=== PATIENT | female | born 1955 | race Hispanic/Latino ===

== ENCOUNTER 2020-09-02 19:03 | Emergency (ER) | payer OTHER, BC ==
[2020-09-02 20:04] LABS: Protime INR 1.23
[2020-09-02 20:05] LABS: Absolute Lymphocytes (CBC) 3.4 K/uL (0.7-4.9); Basophils % 1.1 % (0-1.3); Hematocrit 38.1 % (36.0-45.0); Lymphocytes % 35.7 % (15.3-44.8); MPV 10.9 fL (7.6-11.3)
[2020-09-02] MEDS ORDERED: MECLIZINE HCL 12.5 MG TAB ONE (20:07)
[2020-09-02] MEDS ORDERED: ONDANSETRON 4 MG/2 ML VIAL ONE (20:07)
[2020-09-02 20:20] LABS: ALT/SGPT 82 U/L (12-78); AST/SGOT 90 U/L (15-37); Albumin 4.2 g/dL (3.4-5.0); Alkaline Phosphatase 113 U/L (45-117); BUN Blood Urea Nitrogen 12 mg/dL (7-18); Bicarbonate 28 mmol/L (21-32); Bilirubin Direct 0.1 mg/dL (0-0.2); Bilirubin Total 0.5 mg/dL (0.2-1.0); Glucose Level 153 mg/dL (74-106); NT PRO-BNP 37 pg/mL (<125); Potassium 3.5 mmol/L (3.5-5.1); Protein, Total 8.5 g/dL (6.4-8.2); Sodium Level 141 mmol/L (136-145); Troponin (Emerg Dept Use Only) < 0.02 ng/mL (0.0-0.045)
--- NOTE | 2020-09-02 20:30 | RAD REPORT ---
EXAM DESCRIPTION: Yamil Single View09/02/2020 8:09 pm CLINICAL HISTORY: Hypertension COMPARISON: none FINDINGS: The lungs appear clear of acute infiltrate. The heart is normal size IMPRESSION: No acute abnormalities displayed
--- NOTE | 2020-09-02 20:47 | RAD REPORT ---
EXAM DESCRIPTION: CT - Head Brain Wo Cont - 09/02/2020 8:22 pm CLINICAL HISTORY: Dizziness COMPARISON: None TECHNIQUE: Computed axial tomography of the head was obtained. IV contrast was not requested. All CT scans are performed using dose optimization technique as appropriate and may include automated exposure control or mA/KV adjustment according to patient size. FINDINGS: Many small calcifications are scattered throughout the brain. No surrounding edema noted. An intracranial bleed is not seen . The ventricles are normal in caliber. No extra-axial fluid collection is noted. Mild to moderate low-density areas within periventricular, deep and subcortical white matter likely r epresent ischemic changes secondary to small vessel disease. Fluid within the sinuses/ mastoids is not seen. 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
--- NOTE | 2020-09-02 22:17 | ER ---
Nurse's Notes [facility] Name: Lenora Betts Age: 65 yrs Sex: Female : 1955 Arrival Date: 09/02/2020 Time: 19:06 Bed 6 Private MD: Diagnosis: Dizziness and giddiness;Vertigo Presentation: 09/02 19:25 Chief complaint: Patient states: Dizziness for 2 weeks. BP has been elevated for two ll1 days 200/90 at home, even though she is taking her medications as prescribed. + SOOD and nausea. No fever or cough. Fingerstick in triage 190. Coronavirus screen: Client denies travel out of the [place] in the last 14 days. At this time, the client does not indicate any symptoms associated with coronavirus-19. Ebola Screen: Patient denies travel to an Ebola-affected area in the 21 days before illness onset. Initial Sepsis Screen: Does the patient meet any 2 criteria? No. Patient's initial sepsis screen is negative. Does the patient have a suspected source of infection? No. Patient's initial sepsis screen is negative. Risk Assessment: Do you want to hurt yourself or someone else? Patient reports no desire to harm self or others. Onset of symptoms was August 19, 2020. 19:25 Method Of Arrival: Ambulatory ll1 19:25 Acuity: ELINOR 3 ll1 Historical: - Allergies: 19:27 No Known Allergies; ll1 - PMHx: 19:27 Diabetes - NIDDM; Headaches; High Cholesterol; liver problems; ll1 - PSHx: 19:27 Cholecystectomy; ; ll1 - Immunization history:: Flu vaccine is up to date. - Social history:: Smoking status: Patient denies any tobacco usage or history of. Screenin:01 Abuse screen: Denies threats or abuse. Denies injuries from another. Nutritional rv screening: No deficits noted. Tuberculosis screening: No symptoms or risk factors identified. Fall Risk No fall in past 12 months (0 pts). No secondary diagnosis (0 pts). IV access (20 points). Ambulatory Aid- None/Bed Rest/Nurse Assist (0 pts). Gait- Impaired (20 pts.). Mental Status- Oriented to own ability (0 pts). Total Borjas Fall Scale indicates Low Risk Score (25-44 pts). Fall prevention measures have been instituted. Side Rails Up X 2 Frequent Obs/Assesments occuring Family Present and informed to notify staff if they need to leave bedside As available Patient and Family Educated on Fall Prevention Program and strategies. Assessment: 19:59 Reassessment: patient is nauseated, referred to SERGO Bullard. received new orders. rv Zofran given as ordered verbally. General: Appears uncomfortable, ill, Behavior is calm, cooperative. Pain: Denies pain. Neuro: Level of Consciousness is awake, alert, obeys commands, Oriented to person, place, time, situation, It Infrastructure Architect are equal bilaterally Moves all extremities. Full function Speech is normal, Facial symmetry appears normal, Reports dizziness, since two days. Cardiovascular: Patient's skin is warm and dry. Rhythm is sinus rhythm. Respiratory: Airway is patent Respiratory effort is even, unlabored, Breath sounds are clear bilaterally. GI: Pt is actively vomiting dry heaving. Reports nausea, vomiting. Derm: Skin is intact. 20:26 Reassessment: PATIENT IS BACK FROM CT SCAN. AWAITING RESULT. rv 20:30 Reassessment: PATIENT FEELS MORE COMFORATBLE. NAUSEA IS DECREASED. PO MEDS ABLE TO rv TOLERATE. BLOOD PRESSURE DECREASED. 21:14 Reassessment: patient was able to go to the bathroom. less dizziness, denies nausea at rv this time. Patient states feeling better. Patient states symptoms have improved. 22:11 Reassessment: SERGO BULLARD, IN THE ROOM EXPLAINING THE TEST RESULTS TO THE PATIENT, WITH rv FAMILY AT BEDSIDE. Vital Signs: 19:25 BP 199 / 89; Pulse 69; Resp 17; Temp 98.9; Pulse Ox 99% ; Pain 10/10; ll1 20:06 BP 143 / 80; Pulse 55; Resp 15; Pulse Ox 97% on R/A; rv 20:30 BP 155 / 84; Pulse 62; Resp 16; Pulse Ox 99% on R/A; rv 21:02 BP 170 / 84; Pulse 65; Resp 13; Pulse Ox 99% on R/A; rv 21:57 BP 146 / 81; Pulse 57; Resp 16; Pulse Ox 96% on R/A; rv ED Course: 19:06 Patient arrived in ED. mr 19:16 Isaías Bullard PA is PHCP. [facility] 19:16 Azam Treviño MD is Attending Physician. jmm 19:26 Triage completed. ll1 19:26 Arm band placed on Patient placed in an exam room, on a stretcher. ll1 19:27 Shakeel Dumont, RN is Primary Nurse. rv 19:47 Inserted saline lock: 20 gauge in right antecubital area, using aseptic technique. rv Blood collected. 19:47 Initial lab(s) drawn, by me, sent to lab. EKG done, by ED staff, reviewed by Isaías TROTTER. 20:01 Patient has correct armband on for positive identification. Placed in gown. Bed in low rv position. Call light in reach. Side rails up X2. Adult w/ patient. general merchandise manager on. Pulse ox on. NIBP on. 20:10 XRAY Chest (1 view) In Process Unspecified. EDMS 20:22 CT Head Brain wo Cont In Process Unspecified. EDMS 21:58 No provider procedures requiring assistance completed. rv 22:16 Gordo Sanford MD is Referral Physician. jmm 22:24 IV discontinued, intact, bleeding controlled, No redness/swelling at site. Pressure rv dressing applied. Administered Medications: 19:58 Drug: Zofran (Ondansetron) 4 mg Route: IVP; Site: right antecubital; rv 20:29 Follow up: Response: No adverse reaction; Nausea is decreased rv 20:29 Drug: Meclizine 50 mg Route: PO; rv 21:13 Follow up: Response: No adverse reaction; Other; dizziness decreased. rv Intake: Outcome: 22:16 Discharge ordered by . jmm 22:23 Discharged to home ambulatory, with family. rv 22:23 Condition: improved 22:23 Discharge instructions given to patient, family, Instructed on discharge instructions, follow up and referral plans. medication usage, Demonstrated understanding of instructions, follow-up care, medications, Prescriptions given X 1. 22:24 Patient left the ED. rv Signatures: Dispatcher [employer] EDMS Isaías Bullard PA PA sumanth Ewa Kaba mr Shakeel Dumont, RN RN Bigg Malloy RN RN ll1 Corrections: (The following items were deleted from the chart) 19:28 19:25 Chief complaint: Patient states: Dizziness for 2 weeks. BP has been elevated for ll1 two days 200/90 at home, even though she is taking her medications as prescribed. + nausea. No fever or cough ll1 19:28 19:25 Chief complaint: Patient states: Dizziness for 2 weeks. BP has been elevated for ll1 two days 200/90 at home, even though she is taking her medications as prescribed. + nausea. No fever or cough. Fingerstick in triage 190. ll1
--- NOTE | 2020-09-02 22:17 | EDPHYS ---
Physician Documentation [facility] Name: Lenora Betts Age: 65 yrs Sex: Female : 1955 Arrival Date: 09/02/2020 Time: 19:06 Bed 6 Private MD: ED Physician Azam Treviño HPI: 09/02 19:46 This 65 yrs old Female presents to ER via Ambulatory with complaints of High jmm Blood Pressure, High Blood Sugar, Dizziness. 19:46 Onset: The symptoms/episode began/occurred gradually, 2 week(s) ago. Modifying factors: jmm The symptoms are alleviated by holding head still, the symptoms are aggravated by movement of head. Associated signs and symptoms: Pertinent positives: numbness, Pertinent negatives: chest pain. This is a 65 year old female with DM, HLP, MATTHEWS that presents to the ED with complaints of elevated blood pressure beginning yesterday. Patient states over the past 2 weeks having dizziness and nausea. Denies chest pain, denies abdominal pain. . Historical: - Allergies: 19:27 No Known Allergies; ll1 - PMHx: 19:27 Diabetes - NIDDM; Headaches; High Cholesterol; liver problems; ll1 - PSHx: 19:27 Cholecystectomy; ; ll1 - Immunization history:: Flu vaccine is up to date. - Social history:: Smoking status: Patient denies any tobacco usage or history of. ROS: 19:46 Constitutional: Negative for fever, chills, and weight loss, Cardiovascular: Negative jmm for chest pain, palpitations, and edema, Respiratory: Negative for shortness of breath, cough, wheezing, and pleuritic chest pain, Abdomen/GI: Negative for abdominal pain, nausea, vomiting, diarrhea, and constipation. 19:46 Neuro: Positive for dizziness. 19:46 All other systems are negative. Exam: 19:46 Constitutional: This is a well developed, well nourished patient who is awake, alert, jmm and in no acute distress. Head/Face: atraumatic. Eyes: EOMI, no conjunctival erythema appreciated ENT: Moist Mucus Membranes Neck: Trachea midline, Supple Chest/axilla: Normal chest wall appearance and motion. Cardiovascular: Regular rate and rhythm. No edema appreciated Respiratory: Normal respirations, no respiratory distress appreciated Back: Normal ROM Skin: General appearance color normal MS/ Extremity: Moves all extremities, no obvious deformities appreciated, no edema noted to the lower extremities Neuro: Awake and alert, normal gait Psych: Behavior is normal, Mood is normal, Patient is cooperative and pleasant 19:46 Eyes: Nystagmus: nystagmus with fast component noted, bilaterally. 19:46 Neuro: Orientation: is normal, Mentation: is normal, Memory: is normal. 19:46 Neuro: Cerebellar function: normal finger to nose testing, heel to gonzales testing is normal. 19:46 Psych: Behavior/mood is pleasant, cooperative. 19:52 ECG was reviewed by the Attending Physician. [facility] Vital Signs: 19:25 BP 199 / 89; Pulse 69; Resp 17; Temp 98.9; Pulse Ox 99% ; Pain 10/10; ll1 20:06 BP 143 / 80; Pulse 55; Resp 15; Pulse Ox 97% on R/A; rv 20:30 BP 155 / 84; Pulse 62; Resp 16; Pulse Ox 99% on R/A; rv 21:02 BP 170 / 84; Pulse 65; Resp 13; Pulse Ox 99% on R/A; rv 21:57 BP 146 / 81; Pulse 57; Resp 16; Pulse Ox 96% on R/A; rv MDM: 19:18 Patient medically screened. octavia 22:14 Data reviewed: vital signs, nurses notes. Counseling: I had a detailed discussion with [facility] the patient and/or guardian regarding: the historical points, exam findings, and any diagnostic results supporting the discharge/admit diagnosis, lab results, radiology results, the need for outpatient follow up, to return to the emergency department if symptoms worsen or persist or if there are any questions or concerns that arise at home. ED course: Normal cerebellar exam, I do not suspect VBI, CVA. Symptoms resolved with meclizine. Patient advised to follow up with neuro for further evaluation. Patient is otherwise given strict return precautions. Patient understood and agrees with the plan of care. . 09/02 19:35 Order name: Glucose, Ancillary Testing; Complete Time: 19:41 EDSD 09/02 19:42 Order name: Basic Metabolic Panel; Complete Time: 20:21 [facility] 09/02 19:42 Order name: CBC with Diff; Complete Time: 20:13 [facility] 09/02 19:42 Order name: LFT's; Complete Time: 20:21 [facility] 09/02 19:42 Order name: Magnesium; Complete Time: 20:21 [facility] 09/02 19:42 Order name: NT PRO-BNP; Complete Time: 20:21 [facility] 09/02 19:42 Order name: PT-INR; Complete Time: 20:13 [facility] 09/02 19:42 Order name: Troponin (emerg Dept Use Only); Complete Time: 20:21 [facility] 09/02 19:42 Order name: XRAY Chest (1 view); Complete Time: 20:39 [facility] 09/02 19:42 Order name: EKG; Complete Time: 19:43 [facility] 09/02 19:42 Order name: Cardiac monitoring; Complete Time: 20:25 [facility] 09/02 19:42 Order name: CT Head Brain wo Cont; Complete Time: 20:52 [facility] 09/02 19:42 Order name: EKG - Nurse/Tech; Complete Time: 19:58 [facility] 09/02 19:42 Order name: IV Saline Lock; Complete Time: 19:58 [facility] 09/02 19:42 Order name: Labs collected and sent; Complete Time: 19:58 [facility] 09/02 19:42 Order name: O2 Per Protocol; Complete Time: 19:58 [facility] 09/02 19:42 Order name: O2 Sat Monitoring; Complete Time: 19:58 jmm EC:52 Rate is 65 beats/min. Rhythm is regular. QRS Donnelly is Normal. UT interval is normal. QRS jmm interval is normal. QT interval is normal. No Q waves. T waves are Normal. No ST changes noted. Reviewed by me. Administered Medications: 19:58 Drug: Zofran (Ondansetron) 4 mg Route: IVP; Site: right antecubital; rv 20:29 Follow up: Response: No adverse reaction; Nausea is decreased rv 20:29 Drug: Meclizine 50 mg Route: PO; rv 21:13 Follow up: Response: No adverse reaction; Other; dizziness decreased. rv Disposition: 09/02/20 22:16 Discharged to Home. Impression: Dizziness and giddiness, Vertigo. - Condition is Stable. - Discharge Instructions: Benign Positional Vertigo, Dizziness, Chelsey Maneuver Self-Care. - Prescriptions for Meclizine 25 mg Oral Tablet - take 1 tablet by ORAL route every 8 hours As needed; 30 tablet. - Medication Reconciliation Form, Thank You Letter, Antibiotic Education, Prescription Opioid Use form. - Follow up: Gordo Sanford MD; When: 2 - 3 days; Reason: Recheck today's complaints, Continuance of care, Re-evaluation by your physician. Addendum: 09/04/2020 08:51 Co-signature as Attending Physician, Azam Treviño MD I agree with the assessment and c angelo plan of care. Signatures: Dispatcher [employer] EDSD Azam Treviño MD MD cha Mickail, Joel, PA PA m Shakeel Dumont RN RN rv Bigg Monson RN RN ll1 Corrections: (The following items were deleted from the chart) 09/02 22:24 22:16 09/02/2020 22:16 Discharged to Home. Impression: Dizziness and giddiness; rv Vertigo. Condition is Stable. Forms are Medication Reconciliation Form, Thank You Letter, Antibiotic Education, Prescription Opioid Use. Follow up: Gordo Sanford; When: 2 - 3 days; Reason: Recheck today's complaints, Continuance of care, Re-evaluation by your physician. [facility]
[2020-09-02 23:00] VITALS: TEMP 98.9
[2020-09-02 23:06] VITALS: BP 146/81; O2SAT 96
--- NOTE | 2020-09-04 07:26 | EKG ---
Test Date: 2020-09-02 Test Time: 19:45:18 Butcher Supervisor: RV MEASUREMENT RESULTS: Intervals: Rate: 65 OH: 148 QRSD: 84 QT: 432 QTc: 449 [place]: P: 23 OH: 148 QRS: 41 T: 31 INTERPRETIVE STATEMENTS: Normal sinus rhythm Normal ECG No previous ECG available for comparison Electronically Signed On 09-04-20 07:23:38 [employer] by Jonnie Newberry
== END 2020-09-02 22:24 | disposition home or self-care (01) ==
LOC: ER 19:03
DX: R42 Dizziness and giddiness (principal); E11.9 Type 2 diabetes mellitus without complications; E78.00 Pure hypercholesterolemia, unspecified
CPT/HCPCS: 93005; 85025; 80048; 36415; 83735; 85610; 82947; 80076; 84484; 83880; 70450; 71045; 96374; 99285; J2405

== ENCOUNTER 2022-02-21 12:00 | Emergency (ER) | payer OTHER, BC ==
--- OUTSIDE RECORDS SUMMARY | 2022-02-21 12:06 | XMS REPORT | Continuity of Care Document ---
:1955 Author Organization [facility] t Address [address] [place] [address] Care Team Providers Name Role Phone PCP, DOES NOT HAVE A Primary Care Physician Unavailable CHANDRA Attending Clinician Unavailable Rula_R Attending Clinician Unavailable TRACEY Attending Clinician Unavailable Only, Db Test Attending Clinician Unavailable Tracey PINTO Attending Clinician Richmond JOHNSON Attending Clinician Marcin WOODARD Attending Clinician RICHMOND Attending Clinician Unavailable Doctor Unassigned, Name Attending Clinician Unavailable ANGLE Attending Clinician Unavailable FELIZ Attending Clinician Unavailable Rula_R Admitting Clinician Unavailable ANGLE Admitting Clinician Unavailable Payers Payer Name Policy Type Policy Number Effective Date Expiration Date Franki vo [facility] [id number] 2018 00:00:00 [place] [id number] 2019 [place] 00:00:[place] [id number] 2018 (PPO) 00:00:00 [place] [id number] 2014 EMPLOYEE PLAN 00:00:00 MEDICARE PART A \\T\\ [id number] 2019 B 00:00:00 GENERIC COMMERCIAL [id number] 2020 00:00:00 Problems Condition Condition Condition Status Onset Resolution Last Treating Co mments Source Name Details Category Date Date Treatment Clinician Date Headache Headache Problem Active 2020-0 [facility] 4-23 Family 00:00: Practic 00 e Pain in Pain in Problem Active 2018-10 [facility] thumb Thumb 1-05 Family 00:00: Practic 00 e Neuropathy Neuropathy Problem Active [facility] 7-19 Family 00:00: Practic 00 e Cirrhosis Cirrhosis Problem Active Richie litzy of liver of Liver 7-19 Family 00:00: Practic 00 e Hepatic Hepatic Problem Active [facility] failure Failure 7-19 Family 00:00: Practic 00 e Disorder Disorder Problem Active 2017-10 [facility] of upper of Upper 2-04 Family respirator Respirator 00:00: Pr actic y system y System 00 e Disorder Disorder Problem Active [facility] of brain of Brain 4-20 Family 00:00: Practic 00 e Cholecysti Cholecysti Problem Active [facility] tis tis 9-15 Family 00:00: Practic 00 e Cholelithi Cholelithi Problem Active [facility] asis AND asis and 8-21 Family cholecysti Cholecysti 00:00: Pr actic tis with tis with 00 e obstructio Obstructio n n Liver Liver Problem Active [facility] function Function 7-21 Family tests Tests 00:00: Practic abnormal Abnormal 00 e History of History of Problem Active [facility] polyp of Polyp of 706 Family colon Colon 00:00: Practic 00 e Hypothyroi Hypothyroi Problem Active [facility] dism dism 4-07 Family 00:00: Practic 00 e Vitamin D Vitamin D Problem Active Richie litzy deficiency Deficiency 407 Fa jarret 00:00: Practic 00 e Mixed Mixed Problem Active [facility] hyperlipid Hyperlipid 4-07 [facility] emia emia 00:00: Practic 00 e Hypertensi Hypertensi Problem Active [facility] ve ve 4-07 Family disorder Disorder 00:00: Practi c 00 e Influenza Influenza Problem Active Richie litzy vaccine Vaccine 407 Family needed Needed 00:00: Practic 00 e Chloride Chloride Problem Active [facility] level - Level - 4-07 Family finding Finding 00:00: Practic 00 e Nonalcohol Nonalcohol Problem Active [facility] ic ic 4-07 Family steatohepa Steatohepa 00:00: Pr actic titis titis 00 e Polyp of Polyp of Problem Active [facility] colon Colon 4-07 Family 00:00: Practic 00 e No known No known Disease Unive rs active active ity of problems problems [facility] Allergies, Adverse Reactions, Alerts Allergy Allergy Status Severity Reaction(s) Onset Inactive Treating Comm ents Source Name Type Date Date Clinician Nila Allergy Active [place] to 8-11 Family substanc 00:00: Practic e 00 e Crestor Allergy Active [place] to 05-01 Family substanc 00:00: Practic e 00 e Pravacho Allergy Active Village l to 05-01 Family substanc 00:00: Practic e 00 e Januvia Allergy Active [place] to 11-17 Family substanc 00:00: Practic e 00 e Lexapro Allergy Active [place] to 11-17 Family substanc 00:00: Practic e 00 e NO KNOWN Drug Active [facility] Social History Social Habit Start Date Stop Date Quantity Comments Source Exposure to Yes [facility] SARS-CoV-2 (event) Medica l Branch Sex Ass[birth year] At [birth year] [facility] 00:00:00 00:00:00 [facility] Smoking Status Start Date Stop Date Source Never Smoker [facility] Unknown if ever smoked [facility] Medications Ordered Filled Start Stop Current Ordering Indication Dosage Frequency Signature Comments Components Source Medication Medication Date Date Medication? Clinician (SIG) Name Name amoxicillin 2020-10- No [id number] 1{tbl} Take 1 Univers -clavulanat -10 09- tablet by it y of e 00:00: 05:59 mouth 2 [place] (AUGMENTIN) 00 :00 (two) Medical 875-125 mg times Branch per tablet daily for 10 days. benzonatate 2020-10- No [id number] 100mg Take 1 Univers (TESSALON -15 - capsule by itRyan) 100 00:00: 05:59 [place] mg capsule 00 :00 every 8 Medica l (eight) Branch hours as needed for Cough for up to 10 days. traMADOL Yes 50mg Take 1 Univers (ULTRAM) 50 8-20 tablet by ity of mg tablet 00:00: mouth [place] 00 every 6 Medical (six) Branch hours as needed for Pain (scale 7-10). ondansetron 2017-0 Yes 4mg Take 1 Univ ers (ZOFRAN, 8-20 tablet by ity of HYDROCHLORI 00:00: mouth [place] DE,) 4 mg 00 every 8 Medical tablet (eight) Branch hours as needed for Nausea and Vomiting (N/V). traMADOL 2017-0 Yes 50mg Take 1 Univers (ULTRAM) 50 8-20 tablet by ity of mg tablet 00:00: mouth [place] 00 every 6 Medical (six) Branch hours as needed for Pain (scale 7-10). ondansetron 2017-0 Yes 4mg Take 1 Univ ers (ZOFRAN, 8-20 tablet by ity of HYDROCHLORI 00:00: mouth [place] DE,) 4 mg 00 every 8 Medical tablet (eight) Branch hours as needed for Nausea and Vomiting (N/V). traMADOL 2017-0 Yes 50mg Take 1 Univers (ULTRAM) 50 8-20 tablet by ity of mg tablet 00:00: mouth [place] 00 every 6 Medical (six) Branch hours as needed for Pain (scale 7-10). ondansetron 2017-0 Yes 4mg Take 1 Univ ers (ZOFRAN, 8-20 tablet by ity of HYDROCHLORI 00:00: mouth [place] DE,) 4 mg 00 every 8 Medical tablet (eight) Branch hours as needed for Nausea and Vomiting (N/V). Zyrtec 10 Zyrtec 10 No Zyrtec 10 Village mg tablet mg tablet 2-12 mg tablet Family Zyrtec 10 Zyrtec 10 00:00: Zyrtec 10 Practic mg tablet 1 mg tablet 1 00 mg tablet e Tablet(s) Tablet(s) 1 Oral take Oral take Tablet(s) daily daily Oral take daily Benadryl 25 Benadryl 25 No Benadryl Village mg capsule mg capsule 6-28 25 mg [facility] Benadryl 25 Benadryl 25 00:00: capsule Practic mg capsule; mg capsule; 00 Benadryl e 1 1 25 mg Capsule(s); Capsule(s); capsule; 1 Oral; once Oral; once Capsule(s) daily as daily as ; Oral; needed; needed; once daily UOM: UOM: as needed; Capsule Capsule UOM: Capsule atenolol atenolol No atenolol Richie litzy 100 mg 100 mg 100 mg Family tablet TAKE tablet TAKE tablet Practic 1 TABLET BY 1 TABLET BY TAKE 1 e MOUTH EVERY MOUTH EVERY TABLET BY DAY DAY MOUTH EVERY DAY BD Yessi 2nd BD Yessi 2nd No BD Yessi [place] Gen Pen Gen Pen 2nd Gen Family Needle 32 Needle 32 Pen Needle Practic gauge x gauge x 32 gauge x e " USE 3 " USE 3 " USE TIMES A DAY TIMES A DAY 3 TIMES A DAY ciprofloxac ciprofloxac No ciprofloxa Village in 500 mg in 500 mg jenny 500 mg Family tablet TAKE tablet TAKE tablet Practic 1 TABLET BY 1 TABLET BY TAKE 1 e MOUTH EVERY MOUTH EVERY TABLET BY 12 HOURS 12 HOURS MOUTH EVERY 12 HOURS clindamycin clindamycin No clindamyci Village 1 % lotion 1 % lotion n 1 % Fa jarret lotion Practic e erythromyci erythromyci No erythromyc Village n 250 mg n 250 mg in 250 mg Fa jarret tablet,jose tablet,jose tablet,del Practic yed release yed release ayed e TAKE 1 TAKE 1 release TABLET BY TABLET BY TAKE 1 MOUTH TWICE MOUTH TWICE TABLET BY A DAY A DAY MOUTH TWICE A DAY eszopiclone eszopiclone No eszopiclon Village 3 mg tablet 3 mg tablet e 3 mg Family TAKE 1 TAKE 1 tablet Practic TABLET BY TABLET BY TAKE 1 e MOUTH EVERY MOUTH EVERY TABLET BY DAY AT DAY AT MOUTH BEDTIME BEDTIME EVERY DAY NEEDED NEEDED AT BEDTIME NEEDED ezetimibe ezetimibe No ezetimibe Village 10 mg 10 mg 10 mg Family tablet TAKE tablet TAKE tablet Practic 1 TABLET BY 1 TABLET BY TAKE 1 e MOUTH EVERY MOUTH EVERY TABLET BY DAY. DAY. MOUTH PATIENT PATIENT EVERY DAY. NEEDS NEEDS PATIENT PHYSICAL PHYSICAL NEEDS PHYSICAL famotidine famotidine No famotidine Village 40 mg 40 mg 40 mg Family tablet TAKE tablet TAKE tablet Practic 1 TABLET BY 1 TABLET BY TAKE 1 e MOUTH EVERY MOUTH EVERY TABLET BY DAY DAY MOUTH EVERY DAY FreeStyle FreeStyle No FreeStyle [facility] Lancets 28 Lancets 28 Lancets 28 Family gauge test gauge test gauge test Practic blood blood blood e glucose glucose glucose daily daily daily gabapentin gabapentin No gabapentin [facility] 300 mg 300 mg 300 mg Family capsule capsule capsule Practi c TAKE 1 TAKE 1 TAKE 1 e CAPSULE BY CAPSULE BY CAPSULE BY MOUTH THREE MOUTH THREE MOUTH TIMES A DAY TIMES A DAY THREE TIMES A DAY lactulose lactulose No lactulose [facility] 10 gram/15 10 gram/15 10 gram/15 Family mL oral mL oral mL oral Practi c solution solution solution e TAKE 30 ML TAKE 30 ML TAKE 30 ML BY MOUTH 3 BY MOUTH 3 BY MOUTH 3 TIMES A DAY TIMES A DAY TIMES A DAY Lantus Lantus No Lantus [facility] Solostar Solostar Solostar Fam ankur U-100 U-100 U-100 Practic Insulin 100 Insulin 100 Insulin e unit/mL (3 unit/mL (3 100 mL) mL) unit/mL (3 subcutaneou subcutaneou mL) s pen s pen subcutaneo INJECT 50 INJECT 50 us pen UNITS UNITS INJECT 50 SUBCUTANEOU SUBCUTANEOU UNITS SLY EVERY SLY EVERY SUBCUTANEO DAY DAY USLY EVERY DAY meclizine meclizine No meclizine [facility] 25 mg 25 mg 25 mg Family tablet TAKE tablet TAKE tablet Practic 1 TABLET BY 1 TABLET BY TAKE 1 e MOUTH EVERY MOUTH EVERY TABLET BY 8 HOURS 8 HOURS MOUTH NEEDED FOR NEEDED FOR EVERY 8 PAIN PAIN HOURS NEEDED FOR PAIN metformin metformin No metformin [facility] ER 1,000 mg ER 1,000 mg ER 1,000 Family 24 hr 24 hr mg 24 hr Practic tablet,exte tablet,exte tablet,ext e nded nded ended release release release TAKE 1 TAKE 1 TAKE 1 TABLET BY TABLET BY TABLET BY MOUTH TWICE MOUTH TWICE MOUTH A DAY A DAY TWICE A DAY montelukast montelukast No [facility] 10 mg 10 mg t 10 mg Family tablet TAKE tablet TAKE tablet Practic 1 TABLET BY 1 TABLET BY TAKE 1 e MOUTH EVERY MOUTH EVERY TABLET BY DAY DAY MOUTH EVERY DAY olmesartan olmesartan No olmesartan [facility] 40 40 40 Family mg-hydrochl mg-hydrochl mg-hydroch Practic orothiazide orothiazide lorothiazi e 12.5 mg 12.5 mg de 12.5 mg tablet TAKE tablet TAKE tablet 1 TABLET BY 1 TABLET BY TAKE 1 MOUTH EVERY MOUTH EVERY TABLET BY DAY DAY MOUTH EVERY DAY ondansetron ondansetron No ondansetro [facility] HCl 4 mg HCl 4 mg n HCl 4 mg F amily tablet TAKE tablet TAKE tablet Practic 1 TABLET BY 1 TABLET BY TAKE 1 e MOUTH THREE MOUTH THREE TABLET BY TIMES A DAY TIMES A DAY MOUTH NEEDED NEEDED THREE TIMES A DAY NEEDED OneTouch OneTouch No OneTouch Richie litzy [facility] Family Lancets 30 Lancets 30 Lancets 30 Practic gauge TEST gauge TEST gauge TEST e BLOOD BLOOD BLOOD GLUCOSE GLUCOSE GLUCOSE DAILY DAILY DAILY OneTouch OneTouch No OneTouch Richie litzy Ultra Blue Ultra Blue Ultra Blue Family Test Strip Test Strip Test Strip Practic OneTouch OneTouch OneTouch e Ultra Test Ultra Test Ultra Test strips 1 strips 1 strips 1 MISCELLANEO MISCELLANEO MISCELLANE US THREE US THREE OUS THREE TIMES A DAY TIMES A DAY TIMES A DAY pantoprazol pantoprazol No pantoprazo [place] e 40 mg e 40 mg le 40 mg Famil y tablet,jose tablet,jose tablet,del Practic yed release yed release ayed e TAKE 1 TAKE 1 release TABLET BY TABLET BY TAKE 1 MOUTH EVERY MOUTH EVERY TABLET BY DAY DAY MOUTH EVERY DAY ProAir HFA ProAir HFA No ProAir HFA Village 90 90 90 Family mcg/actuati mcg/actuati mcg/actuat Practic on aerosol on aerosol ion e inhaler inhaler aerosol INHALE 1 TO INHALE 1 TO inhaler 2 PUFFS 2 PUFFS INHALE 1 EVERY 4 TO EVERY 4 TO TO 2 PUFFS 6 HOURS 6 HOURS EVERY 4 TO NEEDED NEEDED 6 HOURS NEEDED sertraline sertraline No sertraline Village 50 mg 50 mg 50 mg Family tablet TAKE tablet TAKE tablet Practic 1 TABLET BY 1 TABLET BY TAKE 1 e MOUTH EVERY MOUTH EVERY TABLET BY DAY DAY MOUTH EVERY DAY tramadol 50 tramadol 50 No tramadol Village mg tablet mg tablet 50 mg Fami ly TAKE 1 TAKE 1 tablet Practic TABLET BY TABLET BY TAKE 1 e MOUTH EVERY MOUTH EVERY TABLET BY 6 (SIX) 6 (SIX) MOUTH HOURS HOURS EVERY 6 NEEDED FOR NEEDED FOR (SIX) MODERATE MODERATE HOURS PAIN FOR UP PAIN FOR UP NEEDED FOR TO 10 DAYS TO 10 DAYS MODERATE PAIN FOR UP TO 10 DAYS Vascepa 1 Vascepa 1 No Vascepa 1 Village gram gram gram Family capsule capsule capsule Practi c TAKE 2 TAKE 2 TAKE 2 e CAPSULES BY CAPSULES BY CAPSULES MOUTH EVERY MOUTH EVERY BY MOUTH DAY DAY EVERY DAY Xifaxan 550 Xifaxan 550 No Xifaxan Village mg tablet mg tablet 550 mg Fam ankur TAKE 1 TAKE 1 tablet Practic TABLET BY TABLET BY TAKE 1 e MOUTH TWICE MOUTH TWICE TABLET BY A DAY A DAY MOUTH TWICE A DAY Immunizations Ordered Immunization Filled Immunization Date Status Commen ts Source Name Name influenza, influenza, 2021-07-17 Completed [facility] injectable, injectable, 00:00:00 Practice quadrivalent quadrivalent SARS-COV-2 (COVID-19) SARS-COV-2 (COVID-19) 2020-11-28 Completed [facility] vaccine, UNSPECIFIED vaccine, UNSPECIFIED 00:00:00 Practice SARS-COV-2 (COVID-19) SARS-COV-2 (COVID-19) 2020-11-02 Completed [facility] vaccine, UNSPECIFIED vaccine, UNSPECIFIED 00:00:00 Practice influenza, high dose influenza, high dose 2019-07-16 Completed [facility] seasonal seasonal 00:00:00 Practice pneumococcal pneumococcal 2019-05-31 Completed [facility] jarret polysaccharide PPV23 polysaccharide PPV23 00:00:00 Practice influenza, seasonal, influenza, seasonal, 2018-08-10 Completed [facility] Family injectable injectable 00:00:00 Practice zoster live zoster live 2016-02-01 Completed [facility] Fami ly 00:00:00 Practice influenza, seasonal, influenza, seasonal, 2015-06-27 Completed [facility] Family injectable injectable 00:00:00 Practice influenza, seasonal, influenza, seasonal, 2014-06-27 Completed [facility] injectable injectable 00:00:00 Practice DTaP DTaP 2014-04-26 Completed [facility] 00:00:00 Practice influenza, seasonal, influenza, seasonal, 2013-07-27 Completed [facility] injectable injectable 00:00:00 Practice DTaP DTaP 2012-09-26 Completed [facility] 00:00:00 Practice influenza, seasonal, influenza, seasonal, 2009-06-27 Completed [facility] injectable injectable 00:00:00 Practice Vital Signs Vital Name Observation Time Observation Value Comments Source Systolic blood 2021-09-10 20:20:00 135 mm[Hg] Univer sity of pressure [facility] Diastolic blood 2021-09-10 20:20:00 73 mm[Hg] Unive [facility] Heart rate 2021-09-10 20:20:00 82 /min [facility] Body temperature 2021-09-10 20:20:00 36.83 Bianca [facility] Respiratory rate 2021-09-10 20:20:00 16 /min [facility] Body height 2021-09-10 20:20:00 157.5 cm [facility] Body weight 2021-09-10 20:20:00 73.074 kg [facility] BMI 2021-09-10 20:20:00 29.47 kg/m2 [facility] Oxygen saturation in 2021-09-10 20:20:00 98 /min [facility] Arterial blood by [facility] Pulse oximetry Branch BP Diastolic 2021-08-07 00:00:00 82 mm[Hg] [facility] Height 2021-08-07 00:00:00 61 [in_i] [facility] BMI (Body Mass 2021-08-07 00:00:00 31.3 kg/m2 [facility] Practice BP Systolic 2021-08-07 00:00:00 130 mm[Hg] [facility] Body Weight 2021-08-07 00:00:00 165.4 [lb_av] [facility] BP Diastolic 2021-05-29 00:00:00 84 mm[Hg] [facility] Height 2021-05-29 00:00:00 61 [in_i] [facility] BMI (Body Mass 2021-05-29 00:00:00 31.5 kg/m2 [facility] BP Systolic 2021-05-29 00:00:00 132 mm[Hg] [facility] Body Weight 2021-05-29 00:00:00 166.6 [lb_av] [facility] Family Practice BP Diastolic 2021-05-07 00:00:00 78 mm[Hg] [facility] Height 2021-05-07 00:00:00 61 [in_i] [facility] BMI (Body Mass 2021-05-07 00:00:00 31.7 kg/m2 [facility]) Practice BP Systolic 2021-05-07 00:00:00 126 mm[Hg] [facility] Body Weight 2021-05-07 00:00:00 168 [lb_av] [facility] Family Practice Procedures Procedure Date / Time Performed Performing Clinician [facility] e ASSIGNMENT OF BENEFITS 2021-09-10 19:59:14 Doctor Unassigned, No [facility] Plan of Care Planned Activity Planned Date Details Comments Source Diagnostic Test 2021-08-07 CBC w/ auto diff [facility] Pending 00:00:00 [code = CBC w/ auto Practice diff] Diagnostic Test 2021-08-07 CMP, serum or [facility] Fam ankur Pending 00:00:00 plasma [code = CMP, Practice serum or plasma] Diagnostic Test 2021-08-07 HbA1c (hemoglobin [facility] Pending 00:00:00 A1c), blood [code = Practice HbA1c (hemoglobin A1c), blood] Diagnostic Test 2021-08-07 lipid panel, [facility] Pending 00:00:00 [code = lipid Practice panel, serum] Diagnostic Test 2021-08-07 [facility] P[facility] 00:00:00 25-hydroxy, total, Practice serum [code = vitamin D, 25-hydroxy, total, serum] Diagnostic Test 2021-08-07 TSH, serum or [facility] Fam ankur Pending 00:00:00 plasma [code = TSH, Practice serum or plasma] Diagnostic Test 2021-08-07 urinalysis, [facility] ly Pending 00:00:00 complete [code = Practice urinalysis, complete] Diagnostic Test 2021-08-07 microalbumin/creati [facility] Pending 00:00:00 nine, mass ratio, Practice urine [code = microalbumin/creati nine, mass ratio, urine] Diagnostic Test 2021-08-07 lipase, serum or [facility] Pending 00:00:00 plasma [code = Practice lipase, serum or plasma] Diagnostic Test 2021-08-07 amylase, serum or [facility] Pending 00:00:00 plasma [code = Practice amylase, serum or plasma] Encounters Start End Encounter Admission Attending Care Care Encounter Source Date/Time Date/Time Type Type Clinicians Facility Department ID 2022-02-20 Outpatient [facility] [id number] [place] 09:46:50 [id number] [facility] 2022-02-06 Outpatient [facility] [id number] [place] 09:13:51 [id number] [facility] 2022-01-21 Outpatient CHANDRA, [facility] [id number] [place] 09:44:51 SUBHA [id number] [facility] 2021-12-20 2021-12-20 Outpatient Sheena_R VFP VFP [id number] 2-20 [facility] 11:23:00 11:23:00 [id number] Family Practic e 2021-11-30 2021-11-30 Outpatient Sheena_R VFP VFP [id number] 2-20 Village 02:50:00 02:50:00 [id number] Family Practic e 2021-11-28 2021-11-28 Outpatient Sheena_R VFP VFP [id number] 2-20 [facility] 01:16:00 01:16:00 [id number] Family Practic e 2021-10-29 2021-10-29 Outpatient R TRACEY [facility] [id number] Univers 13:00:00 13:16:05 SAMIRA [facility] 2021-10-29 2021-10-29 Laboratory Only, Ang Db Test [facility] 1.2.8 [id number] Univers 13:00:00 13:15:00 Only Webb, [facility] [id number] ity of [place] [id number] Xu as SUMMER?BLEA [id number] [address] MEDICAL OFFICE BUILDING 2021-10-29 2021-10-29 Outpatient R [facility] [id number] Univers 13:00:00 13:00:00 [id number] [facility] 2021-10-12 2021-10-12 Outpatient Sheena_R VFP VFP [id number] 2-20 Village 10:56:00 10:56:00 [id number] Family Practic e 2021-10-04 2021-10-04 Outpatient Sheena_R VFP VFP [id number] 2-20 Village 02:18:00 02:18:00 [id number] Family Practic e 2021-09-10 2021-09-10 Urgent Tomy Turner [facility] [id number] Univers 14:01:39 15:08:59 Juancarlos [facility] [id number] ity of [place] [id number] Xu as SUMMER?BLEA [id number] [address] MEDICAL OFFICE BUILDING 2021-09-10 2021-09-10 Outpatient R RICHMOND [facility] [id number] Univers 14:00:00 15:08:59 TOMY [facility] 2021-09-10 2021-09-10 Orders Doctor SAMIRA [id number] 00:00:00 00:00:00 Only Unassigned, KAROL [id number] ity of [place] [facility] [id number] Xu as [id number] [place] [id number] Branch 2021-08-23 2021-08-23 Outpatient Sheena_R VFP VFP [id number] 2-20 Village 12:41:00 12:41:00 [id number] Family Practic e 2021-08-07 2021-08-07 Outpatient Sheena_R VFP VFP [id number] [facility] 01:53:00 01:53:00 [id number] Family Practic e 2021-08-07 2021-08-07 Efrain VFP [place] - [id number] V illage 00:00:00 00:00:00 [facility] Rula, Medical - Practi josefa MD: [id number] _HOU_[address] , Medicine [address], [place] [address] , Ph. 2021-07-17 2021-07-17 Outpatient [facility] [id number] [place] 00:00:00 00:00:00 SURYA 063 Method i 2021-07-17 2021-07-17 Outpatient [facility] [id number] [place] 00:00:00 00:00:00 SURYA 010 Method i 2021-06-28 2021-06-28 Outpatient [facility] [id number] [place] 00:00:00 00:00:00 SURYA 935 Method i 2021-06-26 2021-06-26 Outpatient [facility] [id number] [place] 00:00:00 00:00:00 SURYA 933 Method i 2021-06-21 2021-06-21 Outpatient [facility] [id number] [place] 00:00:00 00:00:00 SURYA 932 Method i 2021-06-19 2021-06-19 Outpatient [facility] [id number] [place] 00:00:00 00:00:00 SURYA 931 Method i 2021-06-15 2021-06-15 Outpatient ANGLE, [facility] [id number] [place] 00:00:00 00:00:00 SURYA 930 Method i 2021-06-12 2021-06-12 Outpatient ANGLE [facility] [id number] [place] 00:00:00 00:00:00 SURYA 929 Method i 2021-06-07 2021-06-07 Outpatient ANGLE, [facility] [id number] [place] 00:00:00 00:00:00 SURYA [address] 2021-06-01 2021-06-01 Outpatient Sheena_R VFP VFP [id number] 2-20 [facility] 12:53:00 12:53:00 [id number] Family Practic e 2021-05-31 2021-05-31 Outpatient ANGLE, [facility] [id number] [place] 00:00:00 00:00:00 SURYA [address] 2021-05-29 2021-05-29 Outpatient Sheena_R VFP VFP [id number] 2-20 [facility] 04:02:00 04:02:00 [id number] Family Practic e 2021-05-29 2021-05-29 Efrain VFP [place] - [id number] V illage 00:00:00 00:00:00 [facility] Rula, Medical - Pracros rivero MD: [id number] _SHANTA_Kyler e Post [facility] In [address] , Medicine [address], [place] [address] , Ph. 2021-05-24 2021-05-24 Outpatient ANGLE, [facility] [id number] [place] 00:00:00 00:00:00 SURYA [address] 2021-05-22 2021-05-22 [facility] [id number] [place] 00:00:00 00:00:00 SURYA [address] 2021-05-10 2021-05-10 Outpatient Sheena_R VFP VFP [id number] 2-20 [facility] 11:42:00 11:42:00 [id number] Family Practic e 2021-05-10 2021-05-10 [place] [id number] [place] 00:00:00 00:00:00 SURYA [address] 2021-05-07 2021-05-07 Outpatient Sheena_R VFP VFP [id number] 2-20 [facility] 01:25:00 01:25:00 [id number] Family Practic e 2021-05-07 2021-05-07 Efrain VFP [place] - [id number] V illage 00:00:00 00:00:00 [facility] Rula, Medical - Pracros rivero MD: [id number] VM_LAURIEU_[address] , Medicine [address], [place] [address] , Ph. 2021-05-03 2021-05-03 Outpatient Sheena_R VFP VFP [id number] 2-20 [facility] 04:44:00 04:44:00 [id number] Family Practic e 2021-04-24 2021-04-24 Outpatient [place], [facility] [id number] [place] 00:00:00 00:00:00 SURYA [address] 2021-04-24 2021-04-24 Outpatient [place], [facility] [id number] [place] 00:00:00 00:00:00 SURYA [address] 2021-03-31 2021-03-31 Outpatient Sheena_R VFP VFP [id number] 2-20 [facility] 09:16:00 09:16:00 [id number] Family Practic e 2021-03-08 2021-03-08 Outpatient EGWI, [facility] [id number] [address] [place] 00:00:00 00:00:00 DEVAUGHN [address] 2021-02-20 2021-02-20 Outpatient [facility] [id number] [place] 00:00:00 00:00:00 SURYA [address] 2021-01-09 2021-01-09 Outpatient [facility] [id number] [place] 00:00:00 00:00:00 SURYA [address] 2020-12-19 2020-12-19 Outpatient [facility] [id number] [place] 00:00:00 00:00:00 SURYA [address] 2020-12-07 2020-12-07 Outpatient [place] [id number] [place] 00:00:00 00:00:00 SURYA 6[address] 2020-12-04 2020-12-04 Outpatient [place] [facility] [id number] [place] 00:00:00 00:00:00 SURYA 8[address] 2020-11-28 2020-11-28 Outpatient [facility] [id number] [facility] 00:00:00 00:00:00 2020-11-21 2020-11-21 Outpatient [place] [facility] [id number] [place] 00:00:00 00:00:00 SURYA [address] 2020-11-02 2020-11-02 Outpatient [facility] [id number] [facility] 00:00:00 00:00:00 Results Test Description Test Time Test Comments Results Result Comments Source Amylase [Enzymatic activity/volume] in Serum or Plasma 05-08 11:51:00 Test Item Value Reference Range Interpretation Comme nts amylase (test code = amylase) 56 U[facility] in Serum or Plasma 2021-05-08 11:51:00 Test Item Value Reference Range Interpretation Comments lipase (test code = lipase) 39 U/L [facility] activity/volume] in Serum or Plasma 2021-05-08 11:51:00 Test Item Value Reference Range Interpretation Comments amylase (test code = amylase) 56 U/L [facility] [[facility] activity/volume] in Serum or Plasma 2021-05-08 11:51:00 Test Item Value Reference Range Interpretation Comments lipase (test code = lipase) 39 U/L 60 [facility] - [id number] 08:07:00 Test Item Value Reference Range Interpretation Comments color (test code = yellow yellow color) appearance (test code clear clear = appearance) specific gravity 1.015 1.001-1.035 (test code = specific gravity) pH (test code = pH) < or = 5.0 5.0-8.0 glucose (test code = negative negative glucose) bilirubin (test code negative negative = bilirubin) ketones (test code = negative negative ketones) occult blood (test negative negative code = occult blood) protein (test code = negative negative protein) nitrite (test code = negative negative nitrite) leukocyte esterase negative negative (test code = leukocyte esterase) WBC (test code = WBC) none seen See_Comment [Auto mated message] The system [employer] [place] generated this result transmitted ref erence range: < or = 5 . The reference range was not used to int erpret this result as normal/abnormal . RBC (test code = RBC) none seen See_Comment [Auto mated message] The system [employer] [place] generated this result transmitted ref erence range: < or = 2 . The reference range was not used to int erpret this result as normal/abnormal . squamous epithelial none seen See_Comment [Automa kennedi message] cells (test code = The syste m which squamous epithelial generate d this result cells) transmitted ref erence range: < or = 5 . The reference range was not used to int erpret this result as normal/abnormal . bacteria (test code = none seen none seen bacteria) hyaline cast (test none seen none seen code = hyaline cast) [facility] - [id number] 08:07:00 Test Item Value Reference Range Interpretation Comments color (test code = yellow yellow color) appearance (test code clear clear = appearance) specific gravity 1.015 1.001-1.035 (test code = specific gravity) pH (test code = pH) < or = 5.0 5.0-8.0 glucose (test code = negative negative glucose) bilirubin (test code negative negative = bilirubin) ketones (test code = negative negative ketones) occult blood (test negative negative code = occult blood) protein (test code = negative negative protein) nitrite (test code = negative negative nitrite) leukocyte esterase negative negative (test code = leukocyte esterase) WBC (test code = WBC) none seen See_Comment [Auto mated message] The system [employer] [place] generated this result transmitted ref erence range: < or = 5 . The reference range was not used to int erpret this result as normal/abnormal . RBC (test code = RBC) none seen See_Comment [Auto mated message] The system [employer] [place] generated this result transmitted ref erence range: < or = 2 . The reference range was not used to int erpret this result as normal/abnormal . squamous epithelial none seen See_Comment [Automa kennedi message] cells (test code = The syste m which squamous epithelial generate d this result cells) transmitted ref erence range: < or = 5 . The reference range was not used to int erpret this result as normal/abnormal . bacteria (test code = none seen none seen bacteria) hyaline cast (test none seen none seen code = hyaline cast) [facility] W Auto Differential panel - [id number] 06:29:00 Test Item Value Reference Range Interpretation Comments white blood cell count (test 8.7 thousand/uL 3.8-10.8 code = white blood cell count) red blood cell count (test 4.21 million/uL 3.80-5.10 code = red blood cell count) hemoglobin (test code = 11.3 g/dL 11.7-15.5 L hemoglobin) hematocrit (test code = 34.4 % 35.0-45.0 L hematocrit) MCV (test code = MCV) 81.7 fL 80.0-100.0 MCH (test code = MCH) 26.8 pg 27.0-33.0 L MCHC (test code = MCHC) 32.8 g/dL 32.0-36.0 RDW (test code = RDW) 15.4 % 11.0-15.0 H platelet count (test code = 199 thousand/uL 140-400 platelet count) MPV (test code = MPV) 12.9 fL 7.5-12.5 H absolute neutrophils (test 4620 cells/uL 3637-5483 code = absolute neutrophils) absolute lymphocytes (test 3089 cells/uL 850-3900 code = absolute lymphocytes) absolute monocytes (test code 600 cells/uL 200-950 = absolute monocytes) absolute eosinophils (test 313 cells/uL 15-500 code = absolute eosinophils) absolute basophils (test code 78 cells/uL 0-200 = absolute basophils) neutrophils (test code = 53.1 % neutrophils) lymphocytes (test code = 35.5 % lymphocytes) monocytes (test code = 6.9 % monocytes) eosinophils (test code = 3.6 % eosinophils) basophils (test code = 0.9 % basophils) [facility] W Auto Differential panel - [id number] 06:29:00 Test Item Value Reference Range Interpretation Comments white blood cell count (test 8.7 thousand/uL 3.8-10.8 code = white blood cell count) red blood cell count (test 4.21 million/uL 3.80-5.10 code = red blood cell count) hemoglobin (test code = 11.3 g/dL 11.7-15.5 L hemoglobin) hematocrit (test code = 34.4 % 35.0-45.0 L hematocrit) MCV (test code = MCV) 81.7 fL 80.0-100.0 MCH (test code = MCH) 26.8 pg 27.0-33.0 L MCHC (test code = MCHC) 32.8 g/dL 32.0-36.0 RDW (test code = RDW) 15.4 % 11.0-15.0 H platelet count (test code = 199 thousand/uL 140-400 platelet count) MPV (test code = MPV) 12.9 fL 7.5-12.5 H absolute neutrophils (test 4620 cells/uL 3339-3222 code = absolute neutrophils) absolute lymphocytes (test 3089 cells/uL 850-3900 code = absolute lymphocytes) absolute monocytes (test code 600 cells/uL 200-950 = absolute monocytes) absolute eosinophils (test 313 cells/uL 15-500 code = absolute eosinophils) absolute basophils (test code 78 cells/uL 0-200 = absolute basophils) neutrophils (test code = 53.1 % neutrophils) lymphocytes (test code = 35.5 % lymphocytes) monocytes (test code = 6.9 % monocytes) eosinophils (test code = 3.6 % eosinophils) basophils (test code = 0.9 % basophils) [facility] [Mass Ratio] in [id number] 18:19:00 Test Item Value Reference Range Interpretation Comments microalbumin random urine 8 ug/mL (test code = microalbumin random urine) creatinine random urine (test 86.9 mg/dL 20.0-320.0 code = creatinine random urine) microalbumin/creatinine 9 mcg/mg creat (random urine) ratio calculated (test code = microalbumin/creatinine (random urine) ratio calculated) [facility] [Mass Ratio] in [id number] 18:19:00 Test Item Value Reference Range Interpretation Comments microalbumin random urine 8 ug/mL (test code = microalbumin random urine) creatinine random urine (test 86.9 mg/dL 20.0-320.0 code = creatinine random urine) microalbumin/creatinine 9 mcg/mg creat (random urine) ratio calculated (test code = microalbumin/creatinine (random urine) ratio calculated) [facility] CenterHem[facility] A1c/Hemoglobin.total in [id number] 17:42:00 Test Item Value Reference Range Interpretation Comments Hemoglobin A1c/Hemoglobin.total in 7.7 % 1.0-5.7 H Blood (test code = 4548-4) average blood glucose (calculation) 174 mg/dL (test code = average blood glucose (calculation)) [facility] A1c/Hemoglobin.total in [id number] 17:42:00 Test Item Value Reference Range Interpretation Comments Hemoglobin A1c/Hemoglobin.total in 7.7 % 1.0-5.7 H Blood (test code = 4548-4) average blood glucose (calculation) 174 mg/dL (test code = average blood glucose (calculation)) [facility] CenterCom[facility] 2000 panel - Serum or Plasma 2021-05-07 17:10:00 Test Item Value Reference Range Interpretation Comments ALT (test code = ALT) 74 U/L 0-55 H AST (test code = AST) 59 U/L 5-34 H BUN (test code = BUN) 14.1 mg/dL 9.8-25.0 alk phos (test code = alk phos) 105 unit/L 40-150 glucose (test code = glucose) 155 mg/dL 70-99 H albumin (test code = albumin) 4.3 g/dL 3.4-5.1 creatinine (test code = 0.87 mg/dL 0.57-1.11 creatinine) eGFR non- (test >60 code = eGFR non-) total bilirubin (test code = 0.5 mg/dL 0.2-1.2 total bilirubin) eGFR - (test >60 code = eGFR - ) sodium (test code = sodium) 139 mEq/L 135-145 potassium (test code = potassium) 4.4 mEq/L 3.5-5.3 chloride (test code = chloride) 106 mmol/L 98-110 total protein (test code = total 7.6 g/dL 6.1-8.2 protein) calcium (test code = calcium) 10.2 mg/dL 8.4-10.4 CO2 (test code = CO2) 26.2 mmol/L 20.0-32.0 anion gap (test code = anion gap) 7 calc [facility] 1995 panel - Serum or [id number] 17:10:00 Test Item Value Reference Range Interpretation Comments HDL (test code = HDL) 45 mg/dL L triglyceride (test code = 193 mg/dL <150 H triglyceride) VLDL (calculated) (test code = VLDL 39 mg/dL (calculated)) cholesterol/HDL ratio (test code = 3.8 mg/dL cholesterol/HDL ratio) non-HDL cholesterol (calculated) 125 mg/dL <160 (test code = non-HDL cholesterol (calculated)) cholesterol (test code = 170 mg/dL <200 cholesterol) Cholesterol in LDL [Mass/volume] in 86 mg/dL <130 Serum or Plasma (test code = 2089-1) [facility] CenterThyrotropin [Units/volume] in Serum or [id number] 17:10:00 Test Item Value Reference Range Interpretation Comments TSH (test code = TSH) 1.764 uIU/mL 0.350-4.940 [facility] CenterTgcucvhc90-Qqjgkvsghtpaht D3+25-Hydroxyvitamin D2 [Mass/volume] in Serum or [id number] 17:10:00 Test Item Value Reference Range Interpretation Comments vitamin D 25OH (test code = 30.1 NG/mL 30.0-96.0 vitamin D 25OH) [facility] 1999 panel - Serum or Plasma 2021-05-07 17:10:00 Test Item Value Reference Range Interpretation Comments ALT (test code = ALT) 74 U/L 0-55 H AST (test code = AST) 59 U/L 5-34 H BUN (test code = BUN) 14.1 mg/dL 9.8-25.0 alk phos (test code = alk phos) 105 unit/L 40-150 glucose (test code = glucose) 155 mg/dL 70-99 H albumin (test code = albumin) 4.3 g/dL 3.4-5.1 creatinine (test code = 0.87 mg/dL 0.57-1.11 creatinine) eGFR non- (test >60 code = eGFR non-) total bilirubin (test code = 0.5 mg/dL 0.2-1.2 total bilirubin) eGFR - (test >60 code = eGFR - ) sodium (test code = sodium) 139 mEq/L 135-145 potassium (test code = potassium) 4.4 mEq/L 3.5-5.3 chloride (test code = chloride) 106 mmol/L 98-110 total protein (test code = total 7.6 g/dL 6.1-8.2 protein) calcium (test code = calcium) 10.2 mg/dL 8.4-10.4 CO2 (test code = CO2) 26.2 mmol/L 20.0-32.0 anion gap (test code = anion gap) 7 calc [facility] 1996 panel - Serum or [id number] 17:10:00 Test Item Value Reference Range Interpretation Comments HDL (test code = HDL) 45 mg/dL L triglyceride (test code = 193 mg/dL <150 H triglyceride) VLDL (calculated) (test code = VLDL 39 mg/dL (calculated)) cholesterol/HDL ratio (test code = 3.8 mg/dL cholesterol/HDL ratio) non-HDL cholesterol (calculated) 125 mg/dL <160 (test code = non-HDL cholesterol (calculated)) cholesterol (test code = 170 mg/dL <200 cholesterol) Cholesterol in LDL [Mass/volume] in 86 mg/dL <130 Serum or Plasma (test code = 2089-1) [facility] CenterThy[facility]ropin [Units/volume] in Serum or [id number] 17:10:00 Test Item Value Reference Range Interpretation Comments TSH (test code = TSH) 1.764 uIU/mL 0.350-4.940 [facility] CenterRpdmprrb59-Sjowxrjonczxli D3+25-Hydroxyvitamin D2 [Mass/volume] in Serum or [id number] 17:10:00 Test Item Value Reference Range Interpretation Comments vitamin D 25OH (test code = 30.1 NG/mL 30.0-96.0 vitamin D 25OH) [facility]
[2022-02-21] MEDS ORDERED: IBUPROFEN 400 MG TAB ONE (12:26)
[2022-02-21] MEDS ORDERED: IBUPROFEN 200 MG TAB PO ONE (12:26)
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
--- NOTE | 2022-02-21 13:35 | EDPHYS ---
Physician Documentation [facility] Name: Lenora Betts Age: 66 yrs Sex: Female : 1955 Arrival Date: 02/21/2022 Time: 12:03 Bed 12 Private MD: ED Physician Refugio Crystal HPI: 02/21 13:27 This 66 yrs old Female presents to ER via Ambulatory with complaints of Fall jr8 Injury, Arm Injury, Shoulder Pain. 13:27 Details of fall: The patient fell from an upright position, while standing. Onset: The jr8 symptoms/episode began/occurred acutely, today. Associated injuries: The patient sustained right arm, decreased range of motion, painful injury. Severity of symptoms: At their worst the symptoms were moderate, in the emergency department the symptoms are unchanged. The patient has not experienced similar symptoms in the past. The patient has not recently seen a physician. Patient stated that she sustained an accidental fall causing her to land on right arm. Has had pain to right elbow with radiation up and down arm since incident. Denies hitting head or neck. No LOC . Historical: - Allergies: 12:08 No Known Allergies; ld1 - PMHx: 12:08 Diabetes - NIDDM; Headaches; High Cholesterol; LIVER PROBLEMS; ld1 - PSHx: 12:08 Cholecystectomy; section; ld1 - Immunization history:: Adult Immunizations up to date, Client reports receiving the 2nd dose of the Covid vaccine. - Social history:: Smoking status: Patient denies any tobacco usage or history of. Patient/guardian denies using alcohol. ROS: 13:27 Eyes: Negative for injury, pain, redness, and discharge, ENT: Negative for injury, jr8 pain, and discharge, Neck: Negative for injury, pain, and swelling, Cardiovascular: Negative for chest pain, palpitations, and edema, Respiratory: Negative for shortness of breath, cough, wheezing, and pleuritic chest pain, Abdomen/GI: Negative for abdominal pain, nausea, vomiting, diarrhea, and constipation, Back: Negative for injury and pain, Skin: Negative for injury, rash, and discoloration, Neuro: Negative for headache, weakness, numbness, tingling, and seizure. 13:27 MS/extremity: Positive for decreased range of motion, pain, tenderness, of the right arm. Exam: 13:27 Constitutional: This is a well developed, well nourished patient who is awake, alert, jr8 and in no acute distress. Head/Face: Normocephalic, atraumatic. Neck: Trachea midline, no thyromegaly or masses palpated, and no cervical lymphadenopathy. Supple, full range of motion without nuchal rigidity, or vertebral point tenderness. No Meningismus. Cardiovascular: Regular rate and rhythm with a normal S1 and S2. No gallops, murmurs, or rubs. Normal PMI, no JVD. No pulse deficits. Respiratory: Lungs have equal breath sounds bilaterally, clear to auscultation and percussion. No rales, rhonchi or wheezes noted. No increased work of breathing, no retractions or nasal flaring. Abdomen/GI: Soft, non-tender, with normal bowel sounds. No distension or tympany. No guarding or rebound. No evidence of tenderness throughout. Back: No spinal tenderness. No costovertebral tenderness. Full range of motion. Skin: Warm, dry with normal turgor. Normal color with no rashes, no lesions, and no evidence of cellulitis. Neuro: Awake and alert, GCS 15, oriented to person, place, time, and situation. Motor strength 5/5 in all extremities. Sensory grossly intact. 13:27 Musculoskeletal/extremity: Extremities: grossly normal except: noted in the right arm: Patient has point tenderness to the right distal radius, right elbow lateral aspect. Full range of motion with wrist noted. Normal sensation with 2+ radial pulses. Decreased active and passive range of motion to the right elbow secondary to pain. No external signs of trauma noted. Remainder of other extremities unremarkable upon physical examination.. Vital Signs: 12:07 BP 161 / 77; Pulse 86; Resp 18; Temp 97.9(TE); Pulse Ox 99% on R/A; Weight 74.39 kg; ld1 Height 5 ft. 1 in. (154.94 cm); Pain 9/10; 14:00 BP 142 / 78; Pulse 80; ll1 12:07 Body Mass Index 30.99 (74.39 kg, 154.94 cm) ld1 Procedures: 13:27 Splinting: Splint applied to right arm using Orthoglass splint, applied by nurse. jr8 Examined by me, post splint application: neurovascular intact, 2+ distal pulses palpable, brisk capillary refill noted, Patient tolerated well. MDM: 12:11 Patient medically screened. jr8 13:27 Data reviewed: vital signs, nurses notes, radiologic studies, plain films. Data jr8 interpreted: Pulse oximetry: on room air is 99 %. Interpretation: normal. Counseling: I had a detailed discussion with the patient and/or guardian regarding: the historical points, exam findings, and any diagnostic results supporting the discharge/admit diagnosis, radiology results, the need for outpatient follow up, a orthopedic surgeon, to return to the emergency department if symptoms worsen or persist or if there are any questions or concerns that arise at home. 02/21 12:20 Order name: XRAY Shoulder RIGHT 2 view; Complete Time: 13:38 jr8 02/21 12:20 Order name: XRAY Elbow RIGHT 3 view; Complete Time: 13:38 jr8 02/21 12:20 Order name: Wrist Right 3 View XRAY; Complete Time: 13:38 jr8 02/21 13:27 Order name: Splint - Elbow - Posterior; Complete Time: 13:50 jr8 Administered Medications: 12:25 Drug: Ibuprofen 600 mg Route: PO; ll1 13:51 Follow up: Response: No adverse reaction; Pain is decreased; RASS: Alert and Calm (0) ll1 Disposition: 18:15 Co-signature as Attending Physician, Refugio Crystal MD. ma2 Disposition Summary: 02/21/22 13:35 Discharge Ordered Location: Home jr8 Problem: new jr8 Symptoms: have improved jr8 Condition: Stable jr8 Diagnosis - Right Radial Head Fracture jr8 Followup: jr8 - With: Aneesh Holden MD - When: 2 - 3 days - Reason: Recheck today's complaints, Continuance of care, Re-evaluation by your physician Discharge Instructions: - Discharge Summary Sheet jr8 - Radial Head Fracture jr8 Forms: - Medication Reconciliation Form jr8 - Thank You Letter jr8 - Antibiotic Education jr8 - Prescription Opioid Use jr8 Signatures: Dispatcher [employer] EDEdmond Hahn PA PA jr8 Refugio Crystal MD MD ma2 Bigg Monson RN RN ll1 Nisha Pulido RN RN ld1
--- NOTE | 2022-02-21 13:35 | RAD REPORT ---
EXAM DESCRIPTION: RAD - Shoulder Right 2 View - 02/21/2022 1:25 pm CLINICAL HISTORY: PAIN COMPARISON: No comparisons FINDINGS: Examination is limited by the patient's arm positioning. The bones are mildly demineralize d. No definitive fracture or dislocation seen. If the patient has persistent pain in the shoulder reg ion, CT imaging could be obtained for further evaluation.
--- NOTE | 2022-02-21 13:36 | RAD REPORT ---
EXAM DESCRIPTION: RAD - Elbow Right 3 View - 02/21/2022 1:25 pm CLINICAL HISTORY: PAIN COMPARISON: No comparisons FINDINGS: Mildly impacted radial neck fracture is seen. Anterior and posterior fat pads are elevated . No dislocation. IMPRESSION: Impacted radial neck fracture.
--- NOTE | 2022-02-21 13:36 | RAD REPORT ---
EXAM DESCRIPTION: RAD - Wrist Right 3 View - 02/21/2022 1:25 pm CLINICAL HISTORY: PAIN Pain COMPARISON: No comparisons FINDINGS: Mild radiocarpal arthritic changes. No acute fracture or dislocation.
[2022-02-21 14:37] VITALS: BP 161/77; TEMP 97.9; O2SAT 99
== END 2022-02-21 14:08 | disposition home or self-care (01) ==
LOC: ER 12:00
PROC: 2W38X1Z Immobilization of Right Upper Extremity using Splint (ICD-10-PCS; principal; 2022-02-21)
DX: S52.121A Displaced fracture of head of right radius, initial encounter for closed fracture (principal); W18.30XA Fall on same level, unspecified, initial encounter; E11.9 Type 2 diabetes mellitus without complications; E78.00 Pure hypercholesterolemia, unspecified
CPT/HCPCS: 99283